=== PATIENT | female | born 1970 | race Caucasian/White ===

== ENCOUNTER → 2019-01-10 16:17 | Outpatient (CLI) | payer BC, SELFPAY ==
--- NOTE | 2019-01-10 16:18 | MM_ITS ---
MM Dig screening mamm BI w/CAD ORDERING PHYSICIAN : Alvino Martinez MD PATIENT AGE: 48 years GENDER: Female COMPARISON: May bilateral mammogram studies INDICATION: ...: Routine Screening Mammogram no hormones. No new complaints. Family history. Noncontributory TECHNIQUE: Standard CC and MLO images were obtained. R2 CAD reviewed. FINDINGS: Heterogeneous breast with areas of increased density bilaterally. Mammography is decreased sensitivity in breast of this character. RIGHT BREAST. . This is the central breast on cc view is again noted similar to the May 2016 study. This area also seems to dissipate somewhat on the MLO view. MLO with no significant new findings Again mammography is somewhat limited in breast of this density if any palpable areas arise ultrasound is useful compliment/augment mammography in this region is of increased breast density . I would tend to suggest &/encourage self breast examination in this patient LEFT BREAST:. Stable appearance. Follow-up in one year IMPRESSION: ...... Moderately dense heterogeneous breast pattern bilaterally-somewhat decreases sensitivity of mammography. No suspicious new findings. ... No new areas of significant concern when compared to multiple studies .. Stable areas of of asymmetric density . Bilateral follow-up in one year recommended BI-RADS Category: 2 RECOMMENDED FOLLOW-UP: 1YR 1 YEAR FOLLOW-UP (A letter has been sent to the patient regarding results of the study.)
== END ==
PROVIDERS: PCP Nurse Practitioner; Visit Provider Nurse Practitioner Obstetrics & Gynecology
DX: Z12.31 Encounter for screening mammogram for malignant neoplasm of breast (principal)
CPT/HCPCS: 77067

== ENCOUNTER 2019-12-06 21:26 | Observation (INO) | payer BC, SELFPAY ==
--- NOTE | 2019-12-06 21:19 | ECG_ITS ---
APPROVED REPORT Exam: Resting ECG HR:79 bpm ECG Measurements Heart Rate 79 AXES WY 128 P 63 QRSd 86 QRS 13 QT 386 T 29 QTc 442 <Conclusion> Sinus rhythm with occasional premature ventricular complexes RSR' or QR pattern in V1 suggests right ventricular conduction delay Borderline ECG Electronically signed by : Callum Diaz, 12/08/2019 18:04:20
[2019-12-06 21:26] VITALS: BP 132/82; PULSE 74; RESP 16; O2SAT 99
[2019-12-06 21:27] VITALS: BP 132/82; PULSE 73; RESP 16; TEMP 36.7; O2SAT 99; BMI 36.0
--- NOTE | 2019-12-06 21:32 | XR_ITS ---
PROCEDURE: XR CHEST 2V CLINICAL HISTORY: chest pain COMPARISON: No exams were available for comparison FINDINGS: The cardiomediastinal silhouette and pulmonary vascularity are within normal limits. The lungs are clear without infiltrates, suspicious nodules, or pleural effusions. There are few small right apical blebs with minimal biapical pleural thickening. No acute bony findings IMPRESSION: No acute finding Dictated by: Bk Rudolph MD 12/07/2019 08:21 Electronically signed by Bk Rudolph MD in [place] 12/07/2019 08:21
[2019-12-06 21:39] LABS: Basophils % 0.3 % (0.1-2.0); Eosinophils # 0.2 K/mm3 (0.0-0.4); Eosinophils % 2.2 % (0.1-12.0); Hematocrit 40.1 % (37.0-47.0); Hemoglobin 12.5 g/dL (12.2-16.2); Lymphocytes # 1.9 K/mm3 (0.7-4.5); Lymphocytes % 18.9 % (10-50); Mean Corpuscular HGB Conc 31.3 g/dL (31.8-35.4); Mean Corpuscular Hemoglobin 26.8 pg (27.0-31.2); Mean Corpuscular Volume 85.8 fl (81-99); Mean Platelet Volume 8.1 fl (7.4-10.4); Monocytes # 0.4 K/mm3 (0.1-1.0); Monocytes % 4.3 % (1.7-9.3); Neutrophils # 7.3 K/mm3 (1.8-7.8); Neutrophils % 74.4 % (37.0-80.0); Platelet Count 323 K/mm3 (142-424); Red Blood Count 4.68 M/mm3 (4.20-5.40); Red Cell Distribution Width 13.2 % (11.5-17.5); White Blood Count 9.9 K/mm3 (4.8-10.8)
[2019-12-06 21:41] LABS: Chloride 101 mmol/L (98-107); Sodium 138 mmol/L (136-145)
[2019-12-06 21:44] LABS: Blood Urea Nitrogen 12 mg/dl (7-17); Calcium 9.9 mg/dl (8.4-10.2); Carbon Dioxide 29 mmol/L (22.0-30.0); Creatinine Clearance Estimated 127 mL/min (50-200); Estimated Glomerular Filt Rate 76 ml/min (>60); GFR (African American) 92 ML/MIN (>60); Glucose 100 mg/dl (74-100)
[2019-12-06 22:00] VITALS: BP 127/79; PULSE 80; RESP 18; O2SAT 99
[2019-12-06 22:05] LABS: Troponin I < 0.01 ng/ml (0.00-0.034)
[2019-12-06 22:30] VITALS: BP 137/81; PULSE 74; RESP 18; O2SAT 99
[2019-12-06 23:00] VITALS: BP 140/61; PULSE 77; RESP 18; O2SAT 98
--- NOTE | 2019-12-06 23:34 | HMH.EDCP ---
ED Disposition Clinical Impression: Chest pain Qualifiers: Chest pain type: precordial pain Qualified Code(s): R07.2 - Precordial pain Disposition: Admitted as Observation Condition on Discharge: Good Referrals: Provider,Referral, [Primary Care Provider] - - Critical Care Critical Care Time: No Attestation: On 12/06/19, the high probability of a clinically significant, sudden or life threatening deterioration of the following system(s) required my full and direct attention, intervention and personal management. The time I documented below is in addition to time spent performing reported procedures but includes the following listed in this critical care notation. Medical Decision Making - Medical Records Medical records reviewed: Yes: I reviewed the patient's medical records. - Kurnal Inquiry Pt receiving controlled substance: No Vital Signs: 12/06/19 21:26 12/06/19 21:27 12/06/19 22:00 Temperature 98.0 F Temperature Source Oral Pulse Rate [Right Brachial] 74 73 80 Respiratory Rate 16 16 18 Blood Pressure [Right Arm] 132/82 132/82 127/79 Blood Pressure Mean [Right Arm] 98 98 95 Blood Pressure Source [Right Arm] Automatic Cuff Automatic Cuff Automatic Cuff Blood Pressure Position [Right Arm] Supine Sitting Supine 02 Sat by Pulse Oximetry 99 99 99 Oxygen Delivery Method Room Air Room Air Room Air 12/06/19 22:30 12/06/19 23:00 Temperature Temperature Source Pulse Rate [Right Brachial] 74 77 Respiratory Rate 18 18 Blood Pressure [Right Arm] 137/81 140/61 Blood Pressure Mean [Right Arm] 99 87 Blood Pressure Source [Right Arm] Automatic Cuff Automatic Cuff Blood Pressure Position [Right Arm] Supine Supine 02 Sat by Pulse Oximetry 99 98 Oxygen Delivery Method Room Air Room Air - Lab Data Lab results reviewed: Yes: I reviewed the patient's lab results. Lab Results 12/06/19 21:15: WBC 9.9, RBC 4.68, Hgb 12.5, Hct 40.1, MCV 85.8, MCH 26.8 L, MCHC 31.3 L, RDW 13.2, Plt Count 323, MPV 8.1, Neut % (Auto) 74.4, Lymph % (Auto) 18.9, [place] % (Auto) 4.3, Eos % (Auto) 2.2, Baso % (Auto) 0.3, Neut # (Auto) 7.3, Lymph # (Auto) 1.9, [place] # (Auto) 0.4, Eos # (Auto) 0.2, Baso # (Auto) 0.0 12/06/19 21:15: Sodium 138, Potassium 4.0, Chloride 101, Carbon Dioxide 29, Anion Gap 12.0, BUN 12, Creatinine 0.80, Estimated Creat Clear 127, Estimated GFR 76, Est GFR ( Amer) 92, Glucose 100, Calcium 9.9, Troponin I < 0.01 Result diagrams: 12/06/19 21:15 12/06/19 21:15 Orders (Tests/Meds): ED MEDICATIONS Generic Name Dose Route Start Last Admin Trade Name Freq PRN Reason Stop Dose Admin Sodium Chloride 1,000 mls @ 999 mls/hr 12/06/19 22:00 12/06/19 21:57 Sod Chlor 0.9% 1000ml Bag IV 12/06/19 23:00 999 mls/hr .Q1H1M RANJANA Administration Discontinued Medications Generic Name Dose Route Start Last Admin Trade Name Freq PRN Reason Stop Dose Admin Aspirin 324 mg 12/06/19 21:33 12/06/19 21:56 Aspirin 81mg Chewable Tablet PO 12/06/19 21:34 324 mg ONCE ONE Administration ORDERS Category Date Time Status Chest XR 2 view (NOT portable) [XR chest 2V] Stat Exams 12/06/19 21:32 Taken Troponin I Q3H Lab 12/07/19 00:45 Ordered Troponin I Q3H Lab 12/07/19 03:45 Ordered Urinalysis and Microscopic Stat Lab 12/06/19 21:33 Ordered - Radiology Data #1 Image(s): Chest Image Reviewed: Yes I reviewed the patient's radiology image Preliminary Findings: Normal/NAD - ECG Data Tracing #1 Normal Sinus Rhythm: Yes Ischemic changes: non-specific ST-T wave changes Chest Pain HPI - General Chief Complaint: Chest Pain Stated Complaint: chest pain Time Seen by Provider: 12/06/19 22:00 Mode of Arrival: Family Vehicle Source of Information: Patient, Medical Record Limitations: No Limitations Description of Symptoms (Recalled from ER Triage Doc. by RN): pt arrives via private vehicle; states she was at work when she began feeling dizzy in ddition to chest pain she had
--- NOTE | 2019-12-06 23:51 | PC.NURSE ---
pt up to bathroom with standby assist. no acute distress noted. mild dizziness.
[2019-12-07] VITALS (19 sets, daily range): BP systolic 95–130; BP diastolic 47–79; PULSE 60–84; RESP 14–18; TEMP 36.5–36.8; O2SAT 96–100; BMI 24.4; BMI 24.9
--- NOTE | 2019-12-07 | IR_ITS ---
APPROVED REPORT Patient Location: Inpatient Slider Assembler: TERRELL Metzger RT (R) PROCEDURES Left heart catheterization Left ventriculogram Selective coronary angiogram INDICATION Acute coronary syndrome, Abnormal stress test Informed consent was obtained prior to the procedure. COMPLICATIONS NONE Estimated Blood Loss: LESS THAN 10 ML TECHNIQUE One percent lidocaine used to anesthetize the right anterior aspect of the wrist. The right radial artery was accessed via the Seldinger technique. A 6 Indian sheath was placed in the right radial artery. 2.5 mg of verapamil, 800 mcg of nitroglycerin, 1mg Lidocaine and 5000 U Heparin were given through the arterial sheath. The trap catheter was also used to perform left heart catheterization, left ventriculogram and selective coronary angiogram. At the end of the procedure the sheath was removed good hemostasis was achieved using Traclet band, patient was transferred to the postop holding area in stable condition. ANGIOGRAPHIC RESULTS The left main artery Normal The left anterior descending artery Normal The circumflex artery Dominant normal The right coronary artery Normal The AYALA ventriculogram reveals Normal 65% The left ventricular end-diastolic pressure Normal 10 mmHg IMPRESSION Normal coronary arteries Normal ejection fraction Normal left ventricular end-diastolic pressure PLAN 1. Evaluation of noncardiac chest pain 2. Consideration for low-dose beta-blockers to suppress PVCs Electronically signed by : Catalion Valentin, 12/07/2019 11:54:14
--- NOTE | 2019-12-07 | CA_ITS ---
APPROVED REPORT Exam: Exercise Treadmill Technologist: Kenya Fernandez, Ht: 5 ft 6 in Wt: 140 lbs BSA: 1.72 m2 HR: 90 bpm BP: 101/61 mmHg Medical History Cardiac Risk Factors: FHX of CAD Stress Test Details Test: Meet HR Resting HR: 96 bpm Max Heart Rate (APMHR): 170 bpm Max HR Achieved: 159 bpm Target HR (85% APMHR): 144 bpm % of APMHR: 93 Recovery HR: 146 bpm BP Resting BP: 93.0/64.0 mmHg Max BP: 118.0/72.0 mmHg Recovery BP: 140.0/53.0 mmHg ECG Resting ECG: NSR,T WAVE INVERSION INF,ANTEROLAT. Clinical Reason for Termination: Fatigue Exercise duration: 08:01 min Highest Stage Achieved: Exercise capacity: 10.1 METs Stress ECG Conclusion PATIENT EXERCISED 8 MINUTES ON MEET PROTOCOL. 10.1 METS. MAX HEART RATE 159 BPM. MAX BP 140/63. TEST STOPPED DUE TO CHEST PAIN AND SOA. NO ARRHYTHMIAS/ECTOPY DURING STRESS. POSITIVE FOR FREQUENT PVC'S/RARE COUPLET IN RECOVERY. <1.5MM ST SEGMENT CHANGES. ABNORMAL STRESS. Test Summary REST . . . . . . . Standing REST . . . . . . . Sitting REST . . . . . . . Standing REST 27:31 0.0 0.0 96 . 93/ 64 . . Stage 1 01:00 10.0 1.7 112 . . . . Stage 1 02:00 10.0 1.7 120 . . . . Stage 1 03:00 10.0 1.7 117 . 100/ 70 . . Stage 2 01:00 12.0 2.5 129 . . . . Stage 2 02:00 12.0 2.5 136 . . . . Stage 2 03:00 12.0 2.5 142 . 110/ 70 . . Stage 3 01:00 14.0 3.4 149 . . . . Stage 3 02:00 14.0 3.4 158 . 118/ 72 . . Stage 3 02:01 14.0 3.4 158 . 118/ 72 . Stop exercise at 08:01 RECOVERY 01:00 0.0 0.0 126 . . . . RECOVERY 02:00 0.0 0.0 115 . . . . RECOVERY 03:00 0.0 0.0 117 . . . . RECOVERY 04:00 0.0 0.0 108 . . . . RECOVERY 05:00 0.0 0.0 100 . . . . RECOVERY 06:00 0.0 0.0 96 . . . . RECOVERY 06:52 0.0 0.0 93 . 116/ 59 . . Electronically signed by : Avelino Gaming, 12/07/2019 12:13:22
--- NOTE | 2019-12-07 00:05 | PC.NURSE ---
urine collected and sent to lab.
[2019-12-07 00:08] LABS: Microscopic, Urine URINE MICROSCOPIC (MICROSCOPIC)
[2019-12-07 00:14] LABS: Appearance,Urine CLEAR (Clear); Bilirubin,Urine Negative (Negative); Blood, Urine TRACE-L (Negative); Color,Urine YELLOW (Yellow); Glucose,Urine (UA) Negative (Negative); Ketones,Urine TRACE (Negative); Leukocyte Esterase,Urine Negative (Negative); Nitrate,Urine Negative (Negative); PH,Urine 6.5 (5.0-8.5); Protein,Urine Negative (Negative); Specific Gravity, Urine <= 1.005 (1.005-1.030); Urobilinogen,Urine 0.2 EU/dl (0.2)
--- NOTE | 2019-12-07 00:25 | PC.NURSE ---
PT ARRIVED TO THE FLOOR VIA W/C FROM ED DEPARTMENT @ 0025.
[2019-12-07 00:31] LABS: Bacteria,Urine Trace /lpf
[2019-12-07 01:57] LABS: Troponin I < 0.01 ng/ml (0.00-0.034)
--- NOTE | 2019-12-07 02:06 | PC.NURSE ---
A&OX4. PT WITH NO C/O CHEST PAIN OR SOA UPON ADMISSION. PT UP INDEPENDENTLY IN ROOM, TOLERATING RA. TOLERATING NPO DIET WELL. PT RESTING IN BED, ON TELE. NO COMPLAINTS THUS FAR, CALL VERGARA IN REACH, VSS WILL CONTINUE TO MONITOR.
--- NOTE | 2019-12-07 04:27 | PC.NURSE ---
PT HAS CONTINUED TO REST T/O SHIFT WITH NO C/O CHEST PAIN OR SOA. NPO DIET IN PLACE. PT TOLERATED SHOWER WELL. VSS WILL CONTINUE TO MONITOR.
[2019-12-07 04:55] LABS: Chloride 109 mmol/L (98-107); Sodium 135 mmol/L (136-145)
[2019-12-07 04:58] LABS: Blood Urea Nitrogen 11 mg/dl (7-17); Carbon Dioxide 21 mmol/L (22.0-30.0); Creatinine Clearance Estimated 115 mL/min (50-200); Estimated Glomerular Filt Rate 106 ml/min (>60); GFR (African American) 128 ML/MIN (>60)
[2019-12-07 04:59] LABS: Glucose 112 mg/dl (74-100)
[2019-12-07 05:02] LABS: Cholesterol 140 mg/dl (140-200); HDL Cholesterol 47 mg/dl (40-60); Magnesium 1.8 mg/dl (1.6-2.3); Triglycerides 54 mg/dl (30-150); VLDL Cholesterol 11 mg/dL (0-40)
[2019-12-07 05:13] LABS: Direct LDL Cholesterol 96.16 mg/dL (100-129)
[2019-12-07 05:14] LABS: Troponin I < 0.01 ng/ml (0.00-0.034)
[2019-12-07 05:18] LABS: Basophils % 0.2 % (0.1-2.0); Eosinophils % 0.2 % (0.1-12.0); Hematocrit 37.1 % (37.0-47.0); Hemoglobin 11.7 g/dL (12.2-16.2); Lymphocytes # 0.9 K/mm3 (0.7-4.5); Lymphocytes % 7.3 % (10-50); Mean Corpuscular HGB Conc 31.5 g/dL (31.8-35.4); Mean Corpuscular Volume 85.5 fl (81-99); Mean Platelet Volume 8.2 fl (7.4-10.4); Monocytes # 0.4 K/mm3 (0.1-1.0); Monocytes % 3.4 % (1.7-9.3); Neutrophils # 10.7 K/mm3 (1.8-7.8); Neutrophils % 88.9 % (37.0-80.0); Platelet Count 293 K/mm3 (142-424); Red Blood Count 4.34 M/mm3 (4.20-5.40); Red Cell Distribution Width 13.5 % (11.5-17.5)
[2019-12-07 05:25] LABS: MANUAL DIFFERENTIAL MANUAL DIFFERENTIAL (MANUAL DIFF)
[2019-12-07 05:28] LABS: Calcium 8.6 mg/dl (8.4-10.2)
[2019-12-07 06:08] LABS: Lymphocytes % 10 % (10-50); Monocytes % 1 % (2-9); Neutrophils % 88 % (42-76); Platelet Estimate Normal; Stomatocytes 1+; Total Cells Counted 100
--- NOTE | 2019-12-07 06:37 | PC.NURSE ---
TRENTON HERBERT NOTIFIED OF CONSULT
--- NOTE | 2019-12-07 07:23 | HMH.PHAVTE ---
[facility] Pharmacy VTE Monitoring - Patient Demographics Admission date: 12/07/19 Report Date: 12/07/19 Time: 07:24 Allergies/Adverse Reactions: Patient Allergies No Known Allergies Allergy (Verified 12/07/19 00:36) Height: 1.63 m Weight: 66.224 kg Patient Problems: Current Active Problems Chest pain (Acute) - VTE Risk Labs: VTE Related Lab Results Hgb 11.7 g/dL (12.2-16.2) L 12/07/19 04:00 Hct 37.1 % (37.0-47.0) 12/07/19 04:00 Plt Count 293 K/mm3 (142-424) 12/07/19 04:00 BUN 11 mg/dl (7-17) 12/07/19 04:00 Creatinine 0.60 mg/dl (0.52-1.04) D 12/07/19 04:00 Estimated Creat Clear 115 mL/min (50-200) 12/07/19 04:00 Was VTE Risk Assessment Performed: Yes VTE Score: 3 VTE Risk Level: Low Risk Clinical Trial Participant: No - Prophylaxis VTE Prophylaxis Ordered?: Yes Types of VTE Prophylaxis: TEDS Knee High
--- NOTE | 2019-12-07 07:38 | CA_ITS ---
APPROVED REPORT EXAM: Comprehensive 2D, Doppler, and color-flow Echocardiogram Primary Substance Abuse Counselor: Earnestine Duncan RVT Ht: 5 ft 4 in Wt: 146lbs BSA: 1.71 BP: 101/60 mmHg Indications: CP Conclusion 1. Patient exercised on Meet protocol and achieved 10.1 mets of workload on treadmill, the blood pressure response to exercise was adequate, patient complained of chest discomfort with peak exercise relieved with rest. The EKG portion of the stress echo was nondiagnostic due to baseline abnormal EKG. 2. With exercise there is increase in contractility of the segments of the myocardium visualized, inferolateral wall was not well visualized. Preserved left ventricular systolic function. 3. Abnormal exercise stress echo due to development of chest discomfort with exercise relieved with rest, baseline EKG was abnormal, inferolateral segments of the myocardium was not well visualized. Electronically signed by : Avelino Gaming, 12/07/2019 12:16:10
--- NOTE | 2019-12-07 07:43 | PC.NURSE ---
relayed to md about patient new onset of hives to wrist and back. md ordered benadryl 25mg iv one time and to remove nitro patch
--- NOTE | 2019-12-07 07:43 | HMH.HP ---
*Admission Date: 12/07/19 *Chief complaint: Chest pain *History of present illness: 49-year-old female no presented to the emergency department after 48 hours of intermittent episodes of chest pain that she would describe as a sharp substernal pain that would last for 1 to 2 minutes and then transition to an achy pain which would eventually resolve over 5 to 10 minutes. Pain first occurred on Wednesday morning when she awoke from sleep. episodes of chest pain lasted until around noon. The next morning patient once again awoke and had chest pain. Symptoms persisted throughout the day. Yesterday evening she had associated nausea and flushing with her episode of chest pain. She also became dizzy and that is what prompted her visit to the emergency department. Patient was admitted. Overnight she is ruled out for LA. EKG did not reveal any ischemia. Regarding risk factors patient has a family history of early heart disease. Her father in his mid 50s from heart disease. [facility] History I have reviewed the patient's past medical history: Yes Medical History: Reports:: Migraine Denies:: Cancer, Diabetes Mellitus Type 1, Diabetes Mellitus Type 2, MRSA *Have you ever received a pneumonia vaccine?: No *Have you received a flu vaccine this season?: No Laterality Cases: Bilateral: Tonsillectomy, Other Other Surgeries: Yes: , Tubal Ligation, Other (Mitral valve prolapse.) Amputation: No Fractures: No - *Social History Educational Level: Completed High School Smoking Status: Never smoker Alcohol Intake: never Substance Use Type: denies use *Occupational Status:: employed Household Members: spouse *Travel in the last 8 weeks: None Family Hx:: Heart Attack, Hypertension, Thyroid Disorder, Alcoholism, Mental illness 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 , 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 Review of Systems - Review of Systems Review of systems:: pertinent systems reviewed and negative unless documented below - Constitutional Denies anorexia, Denies body ache(s), Denies chills - *Cardiovascular Reports chest pain - *Respiratory Denies chest congestion, Denies cough, Denies shortness of breath, Denies shortness of breath with activity - *Gastrointestinal Denies abdominal pain, Denies belching, Denies bloating, Denies heartburn - *Genitourinary Denies abnormal periods - *Musculoskeletal Denies abnormal walking - Integumentary/Breasts Denies acne, Denies hair loss - *Neurologic Denies confusion, Denies seizure-like activity Meds Home Medications Medication Instructions Recorded Confirmed Type No Known Home Medications 07/04/19 12/07/19 History Allergies Allergy/AdvReac Type Severity Reaction Status Date / Time No Known Allergies Allergy Verified 12/07/19 00:36 Exam Vital signs and Labs for Last 24 Hours: Temp Pulse Resp BP Pulse Ox 98.2 F 65 14 100/60 L 97 12/07/19 04:00 12/07/19 04:00 12/07/19 04:00 12/07/19 04:00 12/07/19 04:00 Laboratory Results - last 24 hr 12/06/19 21:15: WBC 9.9, RBC 4.68, Hgb 12.5, Hct 40.1, MCV 85.8, MCH 26.8 L, MCHC 31.3 L, RDW 13.2, Plt Count 323, MPV 8.1, Neut % (Auto) 74.4, Lymph % (Auto) 18.9, [place] % (Auto) 4.3, Eos % (Auto) 2.2, Baso % (Auto) 0.3, Neut # (Auto) 7.3, Lymph # (Auto) 1.9, [place] # (Auto) 0.4, Eos # (Auto) 0.2, Baso # (Auto) 0.0 12/06/19 21:15: Sodium 138, Potassium 4.0, Chloride 101, Carbon Dioxide 29, Anion Gap 12.0, BUN 12, Creatinine 0.80, Estimated Creat Clear 127, Estimated GFR 76, Est GFR ( Amer) 92, Glucose 100, Calcium 9.9, Troponin I < 0.01 12/07/19 00:04: Urine Color Yellow, Urine Appearance Clear, Urine pH 6.5, Ur Specific [place] <= 1.005, Urine Protein Negative, Urine Glucose (UA) Negative, Urine Ketones Trace, Urine Blood Trace-l, Urine Nitrate Negative, Urine Bilirubin Negative, Urine Urobilinogen 0.2, Ur Leukocyte Esterase Negative, Urine WBC 3-5, Ur Squamous Epith Cells 3-5, Urine Bacteria Trace 12/07/19 00:43: Troponin I < 0.01 12/07/19
--- NOTE | 2019-12-07 07:47 | HMH.CNCARD ---
History of Present Illness Consult date: 12/07/19 Requesting physician: Darron Elmore Consult reason: chest pain Chief complaint: chest pain Additional Medical History:: 1. Family history of early coronary artery disease in her father, in his 50s, who was a smoker 2. Vitiligo 3. 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 Pain first occurred on Wednesday morning when she awoke from sleep. episodes of chest pain lasted until around noon. The next morning patient once again awoke and had chest pain. Symptoms persisted throughout the day. Yesterday evening she had associated nausea and flushing with her episode of chest pain. She also became dizzy and that is what prompted her visit to the emergency department. Patient was admitted. Overnight she is ruled out for DC. EKG did not reveal any ischemia. Regarding risk factors patient has a family history of early heart disease. Her father in his mid 50s from heart disease. The above per Dr. Elmore Patient confirms above description of chest pain. She denies tobacco use, treatment for hypertension hyperlipidemia or diabetes. EKG is sinus rhythm with with RSR pattern. [facility] History Medical History: Reports:: Migraine Denies:: Cancer, Diabetes Mellitus Type 1, Diabetes Mellitus Type 2, MRSA *Have you ever received a pneumonia vaccine?: No *Have you received a flu vaccine this season?: No Laterality Cases: Bilateral: Tonsillectomy, Other Other Surgeries: Yes: , Tubal Ligation, Other (Mitral valve prolapse.) Amputation: No Fractures: No - *Social History Educational Level: Completed High School Smoking Status: Never smoker Alcohol Intake: never Substance Use Type: denies use *Occupational Status:: employed Household Members: spouse *Travel in the last 8 weeks: None Family Hx:: Heart Attack, Hypertension, Thyroid Disorder, Alcoholism, Mental illness 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 , 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 Meds Home Medications Medication Instructions Recorded Confirmed Type No Known Home Medications 07/04/19 12/07/19 History Allergies Allergy/AdvReac Type Severity Reaction Status Date / Time No Known Allergies Allergy Verified 12/07/19 00:36 Review of Systems - Review of Systems Review of systems:: pertinent systems reviewed and negative unless documented below - *Cardiovascular Reports chest pain, Denies shortness of breath with activity - *Respiratory Denies shortness of breath with activity - *Gastrointestinal Reports nausea, Denies loose stools, Denies vomiting - *Genitourinary Denies blood in urine - *Musculoskeletal Denies joint pain, Denies back pain - *Neurologic Denies confusion, Denies seizure-like activity Exam Vital signs and Labs for Last 24 Hours: Temp Pulse Resp BP Pulse Ox 98.2 F 65 14 100/60 L 97 12/07/19 04:00 12/07/19 04:00 12/07/19 04:00 12/07/19 04:00 12/07/19 04:00 Laboratory Results - last 24 hr 12/06/19 21:15: WBC 9.9, RBC 4.68, Hgb 12.5, Hct 40.1, MCV 85.8, MCH 26.8 L, MCHC 31.3 L, RDW 13.2, Plt Count 323, MPV 8.1, Neut % (Auto) 74.4, Lymph % (Auto) 18.9, [place] % (Auto) 4.3, Eos % (Auto) 2.2, Baso % (Auto) 0.3, Neut # (Auto) 7.3, Lymph # (Auto) 1.9, [place] # (Auto) 0.4, Eos # (Auto) 0.2, Baso # (Auto) 0.0 12/06/19 21:15: Sodium 138, Potassium 4.0, Chloride 101, Carbon Dioxide 29, Anion Gap 12.0, BUN 12, Creatinine 0.80, Estimated Creat Clear 127, Estimated GFR 76, Est GFR ( Amer) 92, Glucose 100, Calcium 9.9, Troponin I < 0.01 12/07/19 00:04: Urine Color Yellow, Urine Appearance Clear, Urine pH 6.5, Ur Specific [place] <= 1.005, Urine Protein
--- NOTE | 2019-12-07 08:00 | CA_ITS ---
APPROVED REPORT EXAM: Comprehensive 2D, Doppler, and color-flow Echocardiogram Aqua Ammonia Operator: Yolande Jackson CRT Ht: 5 ft 6 in Wt: 140lbs BSA: 1.72 BP: 127/79 mmHg Indications: Chest Pain, Mitral Valve Prolapse, Dizziness and Vertigo 2D Dimensions LVOT 1.99 cm (M/F) 1.5-2.5 M-Mode Dimensions RVDd 2.43 cm (0.9-2.6) LVDd 4.81 cm (3.5-5.7) LVDs 2.70 cm (3.5-5.7) IVSd 0.96 cm (0.6-1.1) PWd 0.72 cm (0.6-1.1) EF (Teich) 75.00% FS 43.90% EDV (Teich) 108.00 mL ESV (Teich) 27.00 mL LV Diastology E/A Ratio 0.55 Mitral Valve MV A Velocity 81.00 (40-130 cm/s) Left Ventricle Left atrium is normal size, left ventricle is normal size, there is no concentric left ventricular hypertrophy, visually estimated ejection fraction 55% with no regional wall motion abnormality. Grade 1 diastolic dysfunction seen without tissue Doppler evidence of raise left atrial pressure. Right Ventricle Right atrium and right ventricular normal size and contractility. Aortic Valve Aortic valve is grossly normal, there is no aortic stenosis aortic insufficiency. Mitral Valve Mitral valve is mildly myxomatous, there is mild prolapse of both anterior posterior mitral leaflet, there is no mitral stenosis, there is trace mitral regurgitation. Tricuspid Valve Tricuspid valve is grossly normal, there is trace tricuspid regurgitation. Great Vessels Aortic root is normal size. Pericardium No significant pericardial effusion noted. Conclusion 1. Normal left ventricular size, preserved left ventricular systolic function, visually estimated ejection fraction 55% with no regional wall motion abnormality, grade 1 diastolic dysfunction seen without tissue Doppler evidence of raise left atrial pressure. 2. Myxomatous mitral valve with mild prolapse of both anterior posterior mitral leaflet, there is no mitral stenosis, there is trace mitral regurgitation. 3. Trace tricuspid regurgitation. 4. No significant pericardial effusion noted. Electronically signed by : Avelino Gaming, 12/07/2019 12:29:23
--- NOTE | 2019-12-07 09:23 | HMH.PHAINT ---
MEDICATION RECONCILIATION COMPLETE. OBTAINED A LIST FROM HER PROVIDER AND CROSS REFERENCED WITH PHARMACY FILL RECORD. SPOKE WITH PATIENT AND SHE CONFIRMED THAT SHE DOES NOT TAKE ANY MEDICATIONS AT HOME.
--- NOTE | 2019-12-07 09:51 | PC.NURSE ---
Charted in error on Teds intervention on pt -12/07/19
--- NOTE | 2019-12-07 11:07 | PC.NURSE ---
taken to cathlab
--- NOTE | 2019-12-07 15:32 | HMH.DCSUM ---
General - General Admission date:: 12/07/19 Discharge date: 12/07/19 HPI HPI: 49-year-old female no presented to the emergency department after 48 hours of intermittent episodes of chest pain that she would describe as a sharp substernal pain that would last for 1 to 2 minutes and then transition to an achy pain which would eventually resolve over 5 to 10 minutes. Pain first occurred on Wednesday morning when she awoke from sleep. episodes of chest pain lasted until around noon. The next morning patient once again awoke and had chest pain. Symptoms persisted throughout the day. Yesterday evening she had associated nausea and flushing with her episode of chest pain. She also became dizzy and that is what prompted her visit to the emergency department. Patient was admitted. Overnight she is ruled out for LA. EKG did not reveal any ischemia. Regarding risk factors patient has a family history of early heart disease. Her father in his mid 50s from heart disease. Hospital Course Hospital Course: Patient was admitted and ruled out for myocardial infarction. Cardiology was consulted. Patient had echocardiogram which showed mitral valve prolapse with normal ejection fraction. Patient underwent stress echocardiogram which was abnormal as patient developed chest pain during peak exercise. Due to the abnormal stress test patient underwent cardiac catheterization which fortunately showed normal coronary arteries. Patient had PVCs identified on her's stress echo. She will be started on low-dose beta-oren therapy for the PVCs. She will follow-up in my office in 1 week. She has been asked to monitor any chest pain symptoms and should chest pain persist we will investigate other causes of chest pain. Objective Vital signs: Temp Pulse Resp BP Pulse Ox 97.7 F 81 16 125/60 97 12/07/19 08:00 12/07/19 13:45 12/07/19 13:45 12/07/19 13:45 12/07/19 13:45 Results Labs on day of discharge: Labs from last 24 hours 12/07/19 12/07/19 12/07/19 04:00 04:00 04:00 WBC 12.0 H RBC 4.34 Hgb 11.7 L Hct 37.1 MCV 85.5 MCH 27.0 MCHC 31.5 L RDW 13.5 Plt Count 293 MPV 8.2 Neut % (Auto) 88.9 H Lymph % (Auto) 7.3 L [place] % (Auto) 3.4 Eos % (Auto) 0.2 Baso % (Auto) 0.2 Neut # (Auto) 10.7 H Lymph # (Auto) 0.9 [place] # (Auto) 0.4 Eos # (Auto) 0.0 Baso # (Auto) 0.0 Total Counted 100 Neutrophils % (Manual) 88 H Lymphocytes % (Manual) 10 Monocytes % (Manual) 1 L Basophils % (Manual) 1.0 Platelet Estimate Normal Stomatocytes 1+ Sodium 135 L Potassium 4.0 Chloride 109 H Carbon Dioxide 21 L D Anion Gap 9.0 BUN 11 Creatinine 0.60 D Estimated Creat Clear 115 Estimated GFR 106 Est GFR ( Amer) 128 D Glucose 112 H Calcium 8.6 D Magnesium 1.8 Troponin I Triglycerides 54 Cholesterol 140 LDL Cholesterol Direct 96.16 L VLDL Cholesterol 11 HDL Cholesterol 47 Cholesterol/HDL Ratio 3.0 Urine Color Urine Appearance Urine pH Ur Specific [place] Urine Protein Urine Glucose (UA) Urine Ketones Urine Blood Urine Nitrate Urine Bilirubin Urine Urobilinogen Ur Leukocyte Esterase Urine WBC Ur Squamous Epith Cells Urine Bacteria 12/07/19 12/07/19 12/07/19 04:00 00:43 00:04 WBC RBC Hgb Hct MCV MCH MCHC RDW Plt Count MPV Neut % (Auto) Lymph % (Auto) [place] % (Auto) Eos % (Auto) Baso % (Auto) Neut # (Auto) Lymph # (Auto) [place] # (Auto) Eos # (Auto) Baso # (Auto) Total Counted Neutrophils % (Manual) Lymphocytes % (Manual) Monocytes % (Manual) Basophils % (Manual) Platelet Estimate Stomatocytes Sodium Potassium Chloride Carbon Dioxide Anion Gap BUN Creatinine Estimated Creat Clear Estimated GFR
--- NOTE | 2019-12-07 15:50 | HMH.PHAINT ---
DISCHARGE COUNSELING COMPLETE. SPOKE WITH THE PATIENT REGARDING THE ADDITION OF BISOPROLOL. DISCUSSED EFFECT ON HR/BP, POTENTIAL FOR DIZZINESS, HOW TO TAKE. PATIENT ASKED BEST TIME OF DAY TO TAKE AND I ADVISED AT NIGHT UNTIL SHE KNOWS HOW IT WILL AFFECT HER.
== END 2019-12-07 17:28 | disposition home or self-care (01) ==
LOC: ER 23:51 → 2ND 12-07 00:16
PROVIDERS: Internal Medicine; Admitting Provider Emergency Medicine; Emergency Provider Emergency Medicine; PCP Family Medicine; Visit Provider Family Medicine
DX: R07.2 Precordial pain (principal); I05.9 Rheumatic mitral valve disease, unspecified; I49.3 Ventricular premature depolarization; I21.9 Acute myocardial infarction, unspecified; L50.9 Urticaria, unspecified; L80 Vitiligo; R61 Generalized hyperhidrosis; R11.0 Nausea; R94.39 Abnormal result of other cardiovascular function study; G43.909 Migraine, unspecified, not intractable, without status migrainosus; Z86.79 Personal history of other diseases of the circulatory system; Z90.89 Acquired absence of other organs; Z82.49 Family history of ischemic heart disease and other diseases of the circulatory system; Z83.49 Family history of other endocrine, nutritional and metabolic diseases; Z81.1 Family history of alcohol abuse and dependence; Z81.8 Family history of other mental and behavioral disorders
CPT/HCPCS: 36415; 71046; 80048; 80061; 81001; 83735; 84484; 85007; 85025; 93005; 93017; 93306; 93350; 93458; 96365; 99152; 99285; C1725; C1769; G0378; J1644; Q9967

== ENCOUNTER → 2019-12-22 12:49 | Outpatient (CLI) | payer BC, SELFPAY ==
--- NOTE | 2019-12-22 12:58 | US_ITS ---
PROCEDURE: US THYROID CLINICAL INDICATION: THYROID NODULE Tenderness COMPARISON: No exams were available for comparison FINDINGS: Right lobe: 3.9 x 1.4 x 1.3 cm with homogeneous echogenicity without discrete nodule. Left lobe: 4.1 x 1.4 x 1.4 cm with homogeneous echogenicity. There is a 2 mm hypoechoic nodule in the mid aspect of the left lobe nonspecific Isthmus: Unremarkable Additional findings: IMPRESSION: 2 mm hypoechoic nodule in the mid aspect of the left lobe nonspecific with low level of suspicion. Otherwise negative thyroid ultrasound Dictated by: Bk Rudolph MD 12/22/2019 16:58 Electronically signed by Bk Rudolph MD in [place] 12/22/2019 16:58
== END ==
PROVIDERS: PCP Family Medicine; Visit Provider Nurse Practitioner Family
DX: E04.1 Nontoxic single thyroid nodule (principal)
CPT/HCPCS: 76536

== ENCOUNTER → 2020-02-12 09:58 | Outpatient (CLI) | payer BC, SELFPAY ==
--- NOTE | 2020-02-12 10:02 | MM_ITS ---
PROCEDURE: MM DIG SCREENING MAMM BI W/CAD Digital Breast Tomosynthesis Included CLINICAL INDICATION: screening xmg There is no personal or family history of breast cancer. COMPARISON: DMDXUR DIG MAMM-DX UNI-RT from 06/05/2016 [facility]B DIG MAMM-SCREEN JÚNIOR W/CAD from 06/25/2017 [facility] MM Dig screening mamm BI w/CAD from 01/10/2019 TECHNIQUE: Standard CC and MLO images and 3D Tomosynthesis was obtained. R2 CAD reviewed. FINDINGS: There is a diffusely dense and heterogenic parenchymal pattern and the findings of bilateral and symmetrical. Agus images are most helpful in this type of dense breast parenchyma. There is no new or suspicious lesion in either breast and no suspicious microcalcifications. IMPRESSION: Diffusely dense parenchymal pattern with no suspicious lesions seen BI-RAD Category: 1 Negative FOLLOW-UP: 1YR 1 Year Follow-up (A letter has been sent to the patient regarding results of the study.) Dictated by: Dr. Dylan Espinosa MD 02/13/2020 09:[address] Dylan Espinosa MD in [place] 02/13/2020 09:40
== END ==
PROVIDERS: PCP Family Medicine; Visit Provider Nurse Practitioner Obstetrics & Gynecology
DX: Z12.31 Encounter for screening mammogram for malignant neoplasm of breast (principal)
CPT/HCPCS: 77063; 77067

== ENCOUNTER → 2020-04-05 09:24 | Outpatient (CLI) | payer BC, SELFPAY ==
[2020-04-05 10:49] LABS: Coronavirus 19 IgG Antibody Negative (Negative); Coronavirus 19 IgM Antibody Negative (Negative)
== END ==
PROVIDERS: Visit Provider Internal Medicine Gastroenterology
DX: Z01.818 Encounter for other preprocedural examination (principal); Z12.11 Encounter for screening for malignant neoplasm of colon
CPT/HCPCS: 36415; 86328

== ENCOUNTER 2020-04-08 08:33 | Day surgery (SDC) | payer BC, SELFPAY ==
[2020-04-04 09:09] VITALS: BMI 21.7
[2020-04-08] VITALS (7 sets, daily range): BP systolic 84–119; BP diastolic 52–70; PULSE 51–60; RESP 18; TEMP 36.1–36.3; O2SAT 97–100
[2020-04-08 09:00] LABS: Urine Pregnancy, HCG Qual. Negative (Negative)
--- NOTE | 2020-04-08 09:07 | P.PN_ITS ---
[facility] Anesthesia Checklist - Patient Identification Patient Identification: Arm Band, Verbal (Name & ) - Structural Data Admitted From: Home Planned Operative Procedure/s: Colonoscopy Consent for Planned Operative Procedure(s) Verified: Yes Verified Documents: Surgical Consent, History and Physical - NPO Status Verified Time NPO: 00:00 - Chart Verification Results Verified: HCG - Additional verifications Patient : No Anesthesia Reactions: No - Airway Assessment C-Spine Mobility Assessed: Yes TMJ Mobility Assessed: Yes Dentition: Good Dentition - Neurological Assessment Level of Consciousness: Awake, Alert, Appropriate, Follows Commands Hx Seizures: No Numbness or tingling in extremities: No - Anesthesia Plan Anesthesia Risk discussed: Yes Anesthesia Plan: Verified ASA Class: II Anesthesia Type: MAC [facility] History I have reviewed the patient's past medical history: Yes Medical History: Reports:: Gastroesophageal Reflux Disease(GERD), Migraine, Valvular Heart Disease (MVP) Denies:: Cancer, Diabetes Mellitus Type 1, Diabetes Mellitus Type 2, Internal Pacemaker, MRSA, Seizures *Have you ever received a pneumonia vaccine?: No *Have you received a flu vaccine this season?: No Anesthesia experience/problems:: None Laterality Cases: Bilateral: Myringotomy (Ear Tubes), Tonsillectomy, Other Other Surgeries: Yes: , Tubal Ligation, Other (Mitral valve prolapse.). 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
--- NOTE | 2020-04-08 09:27 | P.PCN_ITS ---
[facility] Procedure Note Procedure Note:: Colonoscopy Procedure Report: Colonoscopy with cold snare polypectomy Endoscopist: Christiano Frazier II, MD Referring physician: VAHID Velasquez/Alvino Martinez MD Date of Procedure: April 08, 2020 Equipment: Olympus 180 variable stiffness pediatric colonoscope Sedation: MAC sedation Indication: Mrs. Fernandes is a 49-year-old female who is here for initial screening colonoscopy. She reports no abdominal pain, weight loss, change in her bowel habits or rectal bleeding. She reports no family history of colon cancer. She does get some mild chronic constipation and bloating. Procedure: Prior to the procedure, a history and physical exam was performed, and patient's medications and allergies were reviewed. The risks, benefits and alternatives of the sedation and procedure were discussed with the patient. All questions were answered and informed consent was obtained. The patient was brought to the procedure room. Patient identification and proposed procedure were verified by the physician and the nurse. The patient was placed in a left lateral decubitus position and the scope was passed under direct vision. Throughout the procedure, the patient's blood pressure, pulse, and oxygen saturations were monitored continuously. The colonoscopy was accomplished without difficulty. The patient tolerated the procedure well. Findings: On digital rectal examination there was normal rectal tone. There were no external hemorrhoids. The colonoscope was introduced through the anal canal to the rectum and advanced to the cecum. The ileocecal valve and appendiceal orifice were identified. The scope was advanced a short distance into the ileum which appeared grossly normal. The scope was then withdrawn into the colon. The cecum and ascending colon were normal. There was a 3 mm polyp in the transverse colon and a 5 to 6 mm polyp in the descending colon both of which were removed v ia cold snare polypectomy. The remainder of the descending, sigmoid and rectum were normal. There were no other mucosal abnormalities. Upon retroflexion within the rectum there were grade 1 internal hemorrhoids.The preparation was excellent throughout with Archer Preparation Score of 9. The cecal time was 12 minutes. Impression: 1. Diminutive colonic polyps x2 2. Grade 1 internal hemorrhoids Plan: I will follow up the polyp pathology and recommend repeat colonoscopy again in 7-10 years based upon the polyp histology. I would encourage a fiber bowel regimen on a long-term daily maintenance basis.
== END 2020-04-08 10:35 | disposition home or self-care (01) ==
LOC: OUTP 08:35
PROVIDERS: PCP Nurse Practitioner; Visit Provider Internal Medicine Gastroenterology
PROC: 0DJD8ZZ Inspection of Lower Intestinal Tract, Via Natural or Artificial Opening Endoscopic (ICD-10-PCS; CPT 45378; principal; 2020-04-08 09:30)
DX: Z12.11 Encounter for screening for malignant neoplasm of colon (principal); K63.5 Polyp of colon; K64.0 First degree hemorrhoids; K21.9 Gastro-esophageal reflux disease without esophagitis; G43.909 Migraine, unspecified, not intractable, without status migrainosus; I34.1 Nonrheumatic mitral (valve) prolapse; Z90.89 Acquired absence of other organs; Z96.22 Myringotomy tube(s) status; Z79.899 Other long term (current) drug therapy
CPT/HCPCS: 45385; 81025

== ENCOUNTER → 2020-12-12 11:01 | Outpatient (CLI) | payer BC, SELFPAY ==
--- NOTE | 2020-12-12 | XR_ITS ---
PROCEDURE: XR SHOULDER RT MIN 2V CLINICAL INDICATION: PAIN IN RT SHOUDER REGION COMPARISON: No exams were available for comparison FINDINGS: No fracture or dislocation. No lytic or blastic change. There is normal mineralization. The joint spaces are well-preserved. No significant degenerative/arthritic changes. No erosive changes evident. Other findings:None. IMPRESSION: No acute findings. Dictated by: Bk Rudolph MD 12/12/2020 14:39 Bk Rudolph MD in [place] 12/12/2020 14:39
--- NOTE | 2020-12-12 | XR_ITS ---
PROCEDURE: XR SHOULDER LT MIN 2V CLINICAL INDICATION: PAIN IN LT SHOUDER REGION COMPARISON: No exams were available for comparison FINDINGS: No fracture or dislocation. No lytic or blastic change. There is normal mineralization. Mild osteoarthritic changes the glenohumeral joint. There is mild subacromial stenosis. Other findings:There is a small spur along the medial aspect and inferior aspect of the acromion projecting medially. IMPRESSION: Mild osteoarthritis of glenohumeral joint with mild subacromial stenosis Dictated by: Bk Rudolph MD 12/12/2020 14:24 Bk Rudolph MD in [place] 12/12/2020 14:24
== END ==
PROVIDERS: PCP Nurse Practitioner Family; Visit Provider Nurse Practitioner Family
DX: M25.512 Pain in left shoulder (principal); M25.511 Pain in right shoulder
CPT/HCPCS: 73030

== ENCOUNTER → 2020-12-25 10:50 | Outpatient (CLI) | payer BC, SELFPAY ==
--- NOTE | 2020-12-25 10:56 | US_ITS ---
PROCEDURE: US THYROID CLINICAL INDICATION: THYHROID NODULE COMPARISON: US US THYROID from 12/22/2019 FINDINGS: Right lobe: 4 x 1.4 x 1.4 cm with homogeneous echogenicity. No discrete nodule. Left lobe: 4.1 x 1.5 x 1.3 cm with homogeneous echogenicity. A 2 mm hypoechoic nodules present in the mid polar region not significantly changed. No new nodules evident. Isthmus: Unremarkable Additional findings: IMPRESSION: Stable appearance of the thyroid gland. No change 2 mm hypoechoic nodule mid polar region on the left Dictated by: Bk Rudolph MD 12/25/2020 14:19 kB Rudolph MD in [place] 12/25/2020 14:19
== END ==
PROVIDERS: PCP Nurse Practitioner Family; Visit Provider Nurse Practitioner Family
DX: E04.1 Nontoxic single thyroid nodule (principal)
CPT/HCPCS: 76536

== ENCOUNTER → 2021-02-18 10:19 | Outpatient (CLI) | payer BC, SELFPAY ==
--- NOTE | 2021-02-18 10:20 | MM_ITS ---
PROCEDURE INFORMATION: Exam: MG Screening 3D Mammography Exam date and time: 02/18/2021 10:20 AM Age: 50 years old Clinical indication: Encounter for screening mammogram for malignant neoplasm of breast TECHNIQUE: Imaging protocol: Screening tomosynthesis and 2D mammography including computer-aided detection (CAD) when performed. COMPARISON: 1. MG MM DIG SCREENING MAMM BI W/CAD 02/12/2020 10:02 AM 2. MG [facility] MM Dig screening mamm BI w/CAD 01/10/2019 4:34 PM FINDINGS: MAMMOGRAPHY: Breast composition: The breast tissue is heterogeneously dense, which may obscure small masses. Mass: Questionable 0.8 cm mass in the posterior third of the right central breast slightly medial to the nipple line Architectural distortion: None. Calcifications: No suspicious calcifications. Asymmetric density: None. Skin thickening: None. Axillary adenopathy: None. IMPRESSION: Patient to be recalled for spot compression views of the right breast in the CC and MLO projections and right breast ultrasound for further evaluation of a right breast mass. ASSESSMENT: BI-RADS Category 0: Incomplete- Need Additional Imaging Evaluation and/or Prior Mammograms for Comparison
== END ==
PROVIDERS: PCP Nurse Practitioner Family; Visit Provider Nurse Practitioner Obstetrics & Gynecology
DX: Z12.31 Encounter for screening mammogram for malignant neoplasm of breast (principal)
CPT/HCPCS: 77063; 77067

== ENCOUNTER → 2021-03-13 13:30 | Outpatient (CLI) | payer BC, SELFPAY ==
--- NOTE | 2021-03-13 13:31 | MM_ITS ---
PROCEDURE: MM DIG MAMM DX UNILAT RT CAD Digital Breast Tomosynthesis Included CLINICAL INDICATION: abnormal findings on recent xmg COMPARISON: MG [facility] MM Dig screening mamm BI w/CAD from 01/10/2019 MG MM DIG SCREENING MAMM BI W/CAD from 02/12/2020 MG MM DIG SCREENING MAMM BI W/CAD from 02/18/2021 US US BREAST RT COMPLETE from 03/13/2021 TECHNIQUE: Standard CC and MLO images and 3D Tomosynthesis was obtained. R2 CAD reviewed. FINDINGS: The breast is heterogeneously dense, may obscure small masses. Spot compression images demonstrate no evidence of focal discrete masses. There is moderately dilated linear appearing hypoechogenicity is noted in the right breast at 12 o'clock position, may represent dilated ducts. Dense fibroglandular tissue is noted in the right breast. IMPRESSION: Probably benign finding. BI-RAD Category: 3 Probably Benign Finding Short Term Follow-Up FOLLOW-UP: Follow-up ultrasound and mammogram in 6 months is recommended. (A letter has been sent to the patient regarding results of the study.) Dictated by: Peggy Grant 03/13/2021 16:56 Peggy Grant in [place] 03/13/2021 16:56
--- NOTE | 2021-03-13 13:31 | US_ITS ---
PROCEDURE: US BREAST RT COMPLETE CLINICAL INDICATION: abnormal findings on recent xmg COMPARISON: US BL US BREAST-LT COMPLETE W/AXILLA from 12/06/2015 FINDINGS: Mildly distended tubular linear hypo echogenicities are noted in the right breast at 10 to 12 o'clock position, may represent dilated ducts versus cyst measuring up to 0.6 centimeters. Right breast axillary lymph nodes measuring 1.3 centimeters noted. IMPRESSION: Probably benign finding. Please see diagnostic mammogram report of the same date for further recommendations. Dictated by: Peggy Grant 03/13/2021 16:58 Peggy Grant in [place] 03/13/2021 16:58
== END ==
PROVIDERS: PCP Family Medicine; Visit Provider Nurse Practitioner Obstetrics & Gynecology
DX: R92.8 Other abnormal and inconclusive findings on diagnostic imaging of breast (principal)
CPT/HCPCS: 76641; 77061; 77065; G0279

== ENCOUNTER → 2021-09-22 14:36 | Outpatient (CLI) | payer BC, SELFPAY ==
--- NOTE | 2021-09-22 14:37 | MM_ITS ---
PROCEDURE INFORMATION: Exam: US Right Breast, Complete MG Right Diagnostic Breast Tomosynthesis Exam date and time: 09/22/2021 2:37 PM Age: 51 years old Clinical indication: Six-month follow-up for probably benign dilated ducts in the 12 o'clock position TECHNIQUE: Imaging protocol: Complete ultrasound of all four quadrants of the Right breast and the retroareolar regions, including ultrasound of the axilla when performed. Right Diagnostic tomosynthesis and 2D mammography including computer-aided detection (CAD) when performed. Unilateral or bilateral exam. COMPARISON: 1. MG MM DIG MAMM DX UNILAT RT CAD 03/13/2021 1:31 PM 2. MG MM DIG SCREENING MAMM BI W/CAD 02/18/2021 10:27 AM 3. MG MM DIG SCREENING MAMM BI W/CAD 02/12/2020 10:02 AM FINDINGS: MAMMOGRAPHY: Breast density: The breasts are heterogeneously dense, which may obscure small masses. Mass: No suspicious masses. The previously noted, questionable screening detected mass in the posterior central right breast is much less conspicuous today and may have represented summation artifact on prior exam. Architectural distortion: No suspicious distortion. Calcifications: No suspicious calcifications. Asymmetric density: None. Skin thickening: None. Axillary adenopathy: None. ULTRASOUND: No suspicious solid mass identified. Probably benign cluster of complicated cysts versus debris-filled dilated ducts in the 12 o'clock position 3 cm from the nipple measuring 0.5 x 0.7 x 0.4 cm. Probably benign complicated cyst versus hypoechoic solid mass in the 3 o'clock position 1 cm from the nipple measuring 0.5 x 0.3 x 0.5 cm, slightly decreased in size compared to prior exam, previously measuring approximately 0.7 cm. Probably benign complicated cyst versus dilated duct in the 6 o'clock position 4 cm from the nipple measuring 0.5 x 0.6 x 0.3 cm. Fatty benign-appearing right axillary lymph are seen, largest measuring 2.7 cm in length. IMPRESSION: No new suspicious mammographic or sonographic findings today. Recommend additional 6 month follow-up diagnostic mammogram and ultrasound of the right breast to confirm stability of probably benign cystic lesions versus debris-filled dilated ducts in the 12 o'clock , 3 o'clock and 6 o'clock positions. The patient will also be due for her annual bilateral mammogram on 02/18/2022. ASSESSMENT: BI-RADS Category 3: Probably Benign
== END ==
LOC: RAD 14:37
PROVIDERS: PCP Family Medicine; Visit Provider Nurse Practitioner Obstetrics & Gynecology
DX: R92.8 Other abnormal and inconclusive findings on diagnostic imaging of breast (principal)
CPT/HCPCS: 76641; 77061; 77065; G0279

== ENCOUNTER → 2021-12-30 13:11 | Outpatient (CLI) | payer BC, SELFPAY ==
--- NOTE | 2021-12-30 13:16 | XR_ITS ---
FINAL REPORT CLINICAL HISTORY: LEFT FOOT PAIN FINDINGS: LEFT FOOT: Three views of the left foot were obtained. There is a subacute to chronic fracture of the 4th metatarsal which may represent a healing stress fracture with callus formation. The joint spaces are intact. There is no soft tissue abnormality. IMPRESSION: Subacute to chronic fracture of the 4th metatarsal. Reviewed, Interpreted and Dictated by Russell Johnson III, MD Transcribed by Roland Ann Authenticated by Russell Johnson III, MD on 12/30/2021 02:23:35 PM [facility]
== END ==
LOC: RAD 13:12
PROVIDERS: PCP Nurse Practitioner Family; Visit Provider Nurse Practitioner Family
DX: M79.672 Pain in left foot (principal)
CPT/HCPCS: 73630

== ENCOUNTER → 2022-01-02 12:28 | Outpatient (CLI) | payer OTHER, SELFPAY ==
--- NOTE | 2022-01-02 13:08 | MR_ITS ---
FINAL REPORT CLINICAL HISTORY: pt states 3 years ago she injured arm at work. no unable to use arm. lrom. pain with lifting and raising. 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 FINDINGS: Multiplanar MR imaging of the left shoulder was performed without contrast. There is a focal full-thickness tear at the anterior footprint of the supraspinatus tendon measuring 10 mm in AP dimensions. There is mild AC joint degenerative change. There is a small amount of fluid in the joint and the subacromial/subdeltoid bursa. The glenoid labrum is intact. The long head of the biceps tendon is intact. There are several cysts in the humeral head. There is no evidence of fracture or dislocation. The musculature is intact. There is no evidence of soft tissue mass. IMPRESSION: Focal full-thickness tear of the supraspinatus tendon. Mild AC joint arthrosis. Several cysts in the humeral head. Reviewed, Interpreted and Dictated by Russell Johnson III, MD Transcribed by Roland Ann Authenticated by Russell Johnson III, MD on 01/02/2022 03:13:24 PM [facility]
== END ==
PROVIDERS: PCP Nurse Practitioner Family; Visit Provider Nurse Practitioner Family
DX: M25.512 Pain in left shoulder (principal)
CPT/HCPCS: 73221

== ENCOUNTER 2022-01-02 12:39 | Outpatient (RCR) | payer BC, SELFPAY | END 2022-01-02 13:40 | disposition home or self-care (01) | LOC: PT 12:39 | PROVIDERS: Visit Provider Orthopaedic Surgery | DX: S92.345A Nondisplaced fracture of fourth metatarsal bone, left foot, initial encounter for closed fracture (principal) | CPT/HCPCS: 97760 ==

== ENCOUNTER → 2022-01-09 09:11 | Outpatient (CLI) | payer BC, SELFPAY ==
--- NOTE | 2022-01-09 09:11 | XR_ITS ---
FINAL REPORT TECHNIQUE: Bone densitometry calculations of the lumbar spine and left hip were obtained. CLINICAL HISTORY: screening FINDINGS: Using L1-4, the bone mineral density of the spine is 1.038 g/cm2, corresponding to T-score of -0.1. Using the left hip, the bone mineral density of the femoral neck is 0.768 g/cm2, corresponding to a T-score of -0.7. NOTE: T-score: Standard deviation compared with peak bone mass of young adult mean. *Following the recommendations of the International Society of Bone densitometry, classification of hip BMD is based on the lower of two T-scores; total hip or femoral neck. IMPRESSION: Normal bone mineral density of the lumbar spine and hip. Reviewed, Interpreted and Dictated by Russell Johnson III, MD Transcribed by Roland Ann Authenticated by Russell Johnson III, MD on 01/09/2022 10:54:28 AM [facility][1]
== END ==
PROVIDERS: PCP Nurse Practitioner Family; Visit Provider Orthopaedic Surgery
DX: Z13.820 Encounter for screening for osteoporosis (principal)
CPT/HCPCS: 77080

== ENCOUNTER → 2022-01-30 09:53 | Outpatient (CLI) | payer BC, SELFPAY ==
--- NOTE | 2022-01-30 09:57 | XR_ITS ---
FINAL REPORT CLINICAL HISTORY: foot fracture, Pt states that pain started about 2 months ago, no known trauma. COMPARISON: December 30, 2021 FINDINGS: LEFT FOOT There is a late subacute to chronic fracture of the 4th metatarsal. There is increased bone formation at this site consistent with further interval healing. There is no new bony abnormality identified. The joint spaces are intact. There is no soft tissue abnormality. IMPRESSION: Interval healing of late subacute to chronic fracture of the 4th metatarsal. Reviewed, Interpreted and Dictated by Russell Johnson III, MD Transcribed by Anitha Blackmon Authenticated and [facility]
== END ==
LOC: RAD 09:54
PROVIDERS: PCP Nurse Practitioner Family; Visit Provider Orthopaedic Surgery
DX: S92.902A Unspecified fracture of left foot, initial encounter for closed fracture (principal)
CPT/HCPCS: 73630

== ENCOUNTER → 2022-04-10 09:51 | Outpatient (CLI) | payer BC, SELFPAY ==
--- NOTE | 2022-04-10 09:54 | XR_ITS ---
FINAL REPORT CLINICAL HISTORY: foot fracture COMPARISON: 01/30/2022 FINDINGS: 3 views of the left foot were obtained. There has been further interval healing of a 4th metatarsal fracture with increased bone formation. The joint spaces are intact. The soft tissues are unremarkable. IMPRESSION: Further interval healing of a 4th metatarsal fracture. Reviewed, Interpreted and Dictated by Russell Johnson III, MD Transcribed by Roland Ann Authenticated and [facility]
== END ==
LOC: RAD 09:52
PROVIDERS: PCP Nurse Practitioner Family; Visit Provider Orthopaedic Surgery
DX: S92.902A Unspecified fracture of left foot, initial encounter for closed fracture (principal)
CPT/HCPCS: 73630

== ENCOUNTER → 2022-07-07 09:17 | Outpatient (CLI) | payer BC, SELFPAY ==
--- NOTE | 2022-07-07 09:19 | XR_ITS ---
FINAL REPORT CLINICAL HISTORY: lt foot pain broke 6 months ago FINDINGS: 3 views of the left foot were obtained. There is periosteal reaction in the distal diaphysis of the 4th metatarsal consistent with old healed fracture. There is no acute fracture or dislocation. The joint spaces are intact. The soft tissues are unremarkable. IMPRESSION: No acute process. Reviewed, Interpreted and Dictated by Codey Weir MD Transcribed by Roland Ann Authenticated and [facility]
== END ==
LOC: RAD 09:17
PROVIDERS: PCP Nurse Practitioner Family; Visit Provider Physician Assistant Surgical
DX: M79.672 Pain in left foot (principal)
CPT/HCPCS: 73630

== ENCOUNTER → 2022-07-23 08:48 | Outpatient (CLI) | payer BC, SELFPAY ==
--- NOTE | 2022-07-23 08:49 | MM_ITS ---
PROCEDURE INFORMATION: Exam: MG Bilateral Screening 3D Mammography Exam date and time: 07/23/2022 8:44 AM Age: 52 years old Clinical indication: Screening examination. No family history of breast cancer. Referred for six-month follow-up probably benign cystic findings on the right at 12, 3, and 6 o'clock, on 09/22/2021. TECHNIQUE: Imaging protocol: Bilateral Screening tomosynthesis and 2D mammography including computer-aided detection (CAD) when performed. COMPARISON: 1. MG MM DIG MAMM DX UNILAT RT CAD 09/22/2021 2:41 PM 2. MG MM DIG MAMM DX UNILAT RT CAD 03/13/2021 1:31 PM 3. MG MM DIG SCREENING MAMM BI W/CAD 02/18/2021 10:27 AM 4. MG MM DIG SCREENING MAMM BI W/CAD 02/12/2020 10:02 AM FINDINGS: MAMMOGRAPHY: Breast composition: The breasts are heterogeneously dense, which may obscure small masses. Mass: Possible 0.7 cm partly visualized, partly circumscribed mass in the right , 1-5:00, mid third, 4-5 cm from the nipple, CC 52 and MLO frame 47. Architectural distortion: None. Calcifications: No suspicious calcifications. Asymmetric density: None. Skin thickening: None. Axillary adenopathy: None. IMPRESSION: Patient to be recalled for right diagnostic spot compression in CC and MLO projections as well as right sonography, including the recommended sonography on 09/22/2021 (unless it is ordered been performed in the interval). ASSESSMENT: BI-RADS Category 0: Incomplete- Need Additional Imaging Evaluation and/or Prior Mammograms for Comparison
== END ==
PROVIDERS: PCP Nurse Practitioner Family; Visit Provider Nurse Practitioner Obstetrics & Gynecology
DX: Z12.31 Encounter for screening mammogram for malignant neoplasm of breast (principal)
CPT/HCPCS: 77063; 77067

== ENCOUNTER → 2022-08-13 13:44 | Outpatient (CLI) | payer BC, SELFPAY ==
--- NOTE | 2022-08-13 13:44 | MM_ITS ---
PROCEDURE INFORMATION: Exam: US Right Breast, Complete MG Right Diagnostic Breast Tomosynthesis Exam date and time: 08/13/2022 1:52 PM Age: 52 years old Clinical indication: Patient recalled on the basis of a screening mammogram for further evaluation; Right breast; mass TECHNIQUE: Imaging protocol: Complete ultrasound of all four quadrants of the Right breast and the retroareolar regions, including ultrasound of the axilla when performed. Right Diagnostic tomosynthesis and 2D mammography including computer-aided detection (CAD) when performed. Unilateral or bilateral exam. COMPARISON: 1. MG MM DIG SCREENING MAMM BI W/CAD 07/23/2022 8:44 AM 2. MG MM DIG MAMM DX UNILAT RT CAD 09/22/2021 2:41 PM FINDINGS: MAMMOGRAPHY: Digital diagnostic spot compression views of the right breast and 90 degree lateral view of the right breast demonstrate normal overlapping fibroglandular structures without persistent mass or asymmetry identified. ULTRASOUND: Sonographic images of the right breast including the retroareolar region, all 4 quadrants and the axilla do not demonstrate any solid masses. Minimal subcentimeter cystic change is present medially. No architectural distortion or acoustical shadowing. No skin thickening or axillary adenopathy. IMPRESSION: No mammographic or sonographic evidence of malignancy. Annual bilateral mammographic screening is recommended unless otherwise clinically indicated. ASSESSMENT: BI-RADS Category 2: Benign
== END ==
LOC: RAD 13:44
PROVIDERS: PCP Nurse Practitioner Family; Visit Provider Nurse Practitioner Obstetrics & Gynecology
DX: R92.8 Other abnormal and inconclusive findings on diagnostic imaging of breast (principal)
CPT/HCPCS: 76641; 77061; 77065; G0279

== ENCOUNTER → 2022-12-01 10:18 | Outpatient (POV) | payer BC, SELFPAY | PROVIDERS: Visit Provider Dermatology | DX: Z00.00 Encounter for general adult medical examination without abnormal findings (principal) ==

== ENCOUNTER 2023-03-21 10:30 | Emergency (ER) | payer BC, SELFPAY ==
[2023-03-21] VITALS (8 sets, daily range): BP systolic 124–149; BP diastolic 61–99; PULSE 59–79; RESP 17–18; TEMP 36.6–36.8; O2SAT 94–100; BMI 26.6
[2023-03-21 11:10] LABS: Basophils % 0.2 % (0.1-2.0); Eosinophils # 0.1 K/mm3 (0.0-0.4); Hematocrit 39.2 % (37.0-47.0); Hemoglobin 12.4 g/dL (12.2-16.2); Lymphocytes # 0.9 K/mm3 (0.7-4.5); Mean Corpuscular HGB Conc 31.6 g/dL (31.8-35.4); Mean Corpuscular Hemoglobin 26.9 pg (27.0-31.2); Mean Corpuscular Volume 85.3 fl (81-99); Mean Platelet Volume 8.4 fl (7.4-10.4); Monocytes # 0.3 K/mm3 (0.1-1.0); Neutrophils % 86.7 % (37.0-80.0); Platelet Count 288 K/mm3 (142-424); Red Cell Distribution Width 13.5 % (11.5-17.5); White Blood Count 10.3 K/mm3 (4.8-10.8)
[2023-03-21 11:12] LABS: Chloride 103 mmol/L (98-107); Potassium 4.7 mmoL/L (3.5-5.1); Sodium 138 mmol/L (136-145)
[2023-03-21 11:13] LABS: MANUAL DIFFERENTIAL MANUAL DIFFERENTIAL (MANUAL DIFF)
[2023-03-21 11:15] LABS: Alanine Aminotransferase 30 U/L (12-78); Albumin Level 4.4 g/dl (3.5-5.0); Albumin/Globulin Ratio 1.6 (1.1-1.8); Alkaline Phosphatase 68 U/L (38-126); Anion Gap 13.7 mEq/L (5-15); Aspartate Amino Transferase 31 U/L (14-36); Bilirubin,Total 0.4 mg/dl (0.2-1.3); Blood Urea Nitrogen 18 mg/dl (7-17); Carbon Dioxide 26 mmol/L (22.0-30.0); Creatinine Clearance Estimated 93 mL/min (50-200); Estimated Glomerular Filt Rate 75 ml/min (>60); GFR (African American) 91 ML/MIN (>60); Globulin 2.8 g/dL (1.3-3.2); Total Protein,Serum 7.2 g/dl (6.3-8.2)
[2023-03-21 11:16] LABS: Glucose 126 mg/dl (74-100)
--- NOTE | 2023-03-21 11:22 | CT_ITS ---
PROCEDURE INFORMATION: Exam: CT Abdomen And Pelvis Without Contrast Exam date and time: 03/21/2023 12:05 PM Age: 52 years old Clinical indication: Abdominal pain; Flank; Left lower quadrant (llq); Additional info: Llq abdominal pain, stone protocol TECHNIQUE: Imaging protocol: Computed tomography of the abdomen and pelvis without contrast. Radiation optimization: All CT scans at this facility use at least one of these dose optimization techniques: automated exposure control; mA and/or kV adjustment per patient size (includes targeted exams where dose is matched to clinical indication); or iterative reconstruction. REPORTING DATA: Count of CT and Cardiac NM exams in prior 12 months: This patient has received 0 known CTs and 0 known cardiac nuclear medicine studies in the 12 months prior to the current study. COMPARISON: CR XR CHEST 2V 12/06/2019 9:53 PM FINDINGS: Liver: Normal. No mass. Gallbladder and bile ducts: Normal. No calcified stones. No ductal dilation. Pancreas: Normal. No ductal dilation. Spleen: Multiple calcified splenic granulomata. Adrenal glands: Normal. No mass. Kidneys and ureters: There is a 2.6 mm, obstructing, left ureterovesical junction stone, with associated moderate left hydroureteral nephrosis. There is inflammatory fat stranding surrounding the left kidney. Findings are consistent with pyelonephritis. There is an additional, nonobstructing 2 mm left inferior pole renal stone. No right renal stones or right hydroureteronephrosis. Stomach and bowel: Unremarkable. No obstruction. No mucosal thickening. Appendix: The appendix is visualized and appears normal. Intraperitoneal space: Unremarkable. No free air. No significant fluid collection. Vasculature: Unremarkable. No abdominal aortic aneurysm. Lymph nodes: Unremarkable. No enlarged lymph nodes. Urinary bladder: Unremarkable as visualized. Reproductive: Unremarkable as visualized. Bones/joints: Unremarkable. No acute fracture. Soft tissues: Unremarkable. IMPRESSION: There is a 2.6 mm, obstructing, left ureterovesical junction stone, with associated moderate left hydroureteral nephrosis. There is inflammatory fat stranding surrounding the left kidney. Findings are consistent with pyelonephritis. There is an additional, nonobstructing 2 mm left inferior pole renal stone.
--- NOTE | 2023-03-21 11:24 | HMH.EDGENADL ---
Discharge Plan Disposition Patient Disposition: Home, Self-Care Condition: Fair Prescriptions Prescriptions: New ondansetron 4 mg tablet,disintegrating 4 mg PO Q8H PRN (Reason: nausea and vomiting) 4 Days Qty: 16 0RF oxycodone 5 mg tablet 5 mg PO Q6H PRN (Reason: pain) Qty: 16 0RF Rx Instructions: Please take for severe pain refractory to Tylenol and ibuprofen No Action famotidine 40 mg tablet 40 mg PO meloxicam 15 mg tablet 15 mg PO DAILY progesterone micronized [Prometrium] 100 mg capsule 100 mg PO DAILY 30 Days Qty: 30 11RF medroxyprogesterone [Provera] 2.5 mg tablet 2.5 mg PO DAILY 90 Days Qty: 90 3RF estradiol 1 mg tablet See Rx Instructions .ROUTE .COMPLEX Qty: 90 3RF Dose Instruction: TAKE 1 TABLET DAILY Rx Instructions: TAKE 1 TABLET DAILY bisoprolol fumarate 5 MG tablet 0.5 tab PO DAILY cetirizine 10 MG capsule 10 mg PO DAILY Referrals Follow up/Referrals: Ibeth Banks APRN [Primary Care Provider] - See instructions Activity Restrictions/Add. Instructions Additional Instructions/Restrictions: At this time it was felt you are safe to be discharged home. If new or worsening symptoms please do not hesitate to return to the emergency department. If you have fever please return to the emergency department. Please take your medications as prescribed and follow-up early to midweek with your family doctor for continued evaluation. Clinical Impressions Clinical Impression: Calculus of ureterovesical junction (UVJ) Discharge ED Provider: Shimon [place] [facility] HPI General Chief complaint: PAIN Stated complaint: left side pain Time Seen by Provider: 03/21/23 11:16 Mode of Arrival: Wheelchair Source of Information: Patient Limitations: No Limitations Description of Symptoms (Recalled from ER Triage Doc. by RN): Pt reports L sided abd pain that began suddenly while at work, reports has constant pressure of needing to urinate since pain began, pt reports only voiding small amounts at a time. Pt states no blood noted in urine. History of Present Illness HPI narrative: Patient is a 52-year-old female with no pertinent past medical history presents emergency department for left lower quadrant abdominal pain. Onset was acute, 630 this morning, severe. Nonmodifiable. There is associated nausea, no vomiting. Last bowel movement this morning. Patient denies dysuria. No history of kidney stones before. No other acute complaints at this time Related Data Home Medications Medication Instructions Recorded Confirmed bisoprolol fumarate 5 mg tablet 0.5 tab PO DAILY High blood 04/04/20 10/01/22 pressure cetirizine 10 mg capsule 10 mg PO DAILY allergies 04/08/20 10/01/22 famotidine 40 mg tablet 40 mg PO 01/02/21 10/01/22 meloxicam 15 mg tablet 15 mg PO DAILY 04/10/22 10/01/22 Previous Rx's Medication Instructions Recorded medroxyprogesterone 2.5 mg tablet 2.5 mg PO DAILY 90 days #90 tabs 10/06/21 (Provera) estradiol 1 mg tablet See Rx Instructions .Route 07/22/22 .COMPLEX #90 tabs progesterone micronized 100 mg 100 mg PO DAILY 30 days #30 caps 10/01/22 capsule (Prometrium) ondansetron 4 mg disintegrating 4 mg PO Q8H PRN nausea and 03/21/23 tablet vomiting 4 days #16 tabs oxycodone 5 mg tablet 5 mg PO Q6H PRN pain #16 tabs 03/21/23 Allergies Allergy/AdvReac Type Severity Reaction Status Date / Time No Known Allergies Allergy Verified 10/01/22 10:31 [facility] Disclaimer: The information contained in this section may have been updated after the patient was seen, as this information can be updated by other users. Social History Smoking Status: Unknown if ever smoked alcohol intake: never substance use type: denies use current occupational status: employed Travel in the last 8 weeks: None household members: spouse housing: house curr
[2023-03-21 11:34] LABS: HCG Qualitative, Serum Negative (Negative)
[2023-03-21 11:50] LABS: Lymphocytes % 11 % (10-50); Monocytes % 3 % (2-9); Neutrophils % 86 % (42-76); Platelet Estimate Normal; Total Cells Counted 100
[2023-03-21 11:51] LABS: Hypochromasia 1+
--- NOTE | 2023-03-21 12:07 | PC.NURSE ---
pt back from rad
--- NOTE | 2023-03-21 12:08 | PC.NURSE ---
PT RETURNED FROM CT
[2023-03-21 12:39] LABS: Microscopic, Urine URINE MICROSCOPIC (MICROSCOPIC)
[2023-03-21 12:41] LABS: Appearance,Urine CLEAR (Clear); Bilirubin,Urine Negative (Negative); Blood, Urine Negative (Negative); Color,Urine YELLOW (Yellow); Glucose,Urine (UA) Negative (Negative); Ketones,Urine 2+ (Negative); Leukocyte Esterase,Urine Negative (Negative); Nitrate,Urine Negative (Negative); PH,Urine 8.5 (5.0-8.5); Protein,Urine Negative (Negative); Specific Gravity, Urine 1.015 (1.005-1.030); Urobilinogen,Urine 0.2 EU/dl (0.2)
[2023-03-21 12:53] LABS: Bacteria,Urine Trace /lpf; Squamous Epithelial Cell,Urine Occasional #/hpf (0-5)
--- NOTE | 2023-03-21 14:09 | PC.NURSE ---
Addendum entered by Barb Al RN 03/21/23 14:10: waiting manager transmission back from hospitalist at [facility], bed placement staff did report they have no beds at this time they are placing pts on a wait list Original Note: contacting [facility] r/t possible transfer
--- NOTE | 2023-03-21 14:18 | PC.NURSE ---
contacting [facility] r/t transfer
--- NOTE | 2023-03-21 14:27 | PC.NURSE ---
ER MD [place] speaking with with [facility] at this time
--- NOTE | 2023-03-21 14:33 | PC.NURSE ---
TRUDY RESENDEZ at discussing POC with pt.
--- NOTE | 2023-03-21 14:36 | PC.NURSE ---
notified [facility] pt has decided to be discharged home after discussing with ER MD [place]
== END 2023-03-21 15:50 | disposition home or self-care (01) ==
PROVIDERS: Emergency Provider Emergency Medicine; PCP Nurse Practitioner Family
DX: N13.2 Hydronephrosis with renal and ureteral calculous obstruction (principal)
CPT/HCPCS: 74176; 80053; 81001; 84703; 85007; 85025; 96361; 96374; 96375; 96376; 99285; J0696; J2405

== ENCOUNTER → 2023-03-23 07:55 | Outpatient (CLI) | payer BC, SELFPAY ==
--- NOTE | 2023-03-23 08:07 | US_ITS ---
FINAL REPORT CLINICAL HISTORY: THYROID NODULE COMPARISON: 12/25/2020 FINDINGS: Thyroid ultrasound: The right lobe of the thyroid measures 3.7 x 1.4 x 1.1 cm in size. The echotexture is normal and no evidence of nodules is seen. The left lobe of the thyroid measures 3.4 x 1.2 x 1.4 cm in size. The echotexture is normal. There is a single cystic nodule present measuring 3 x 2 x 1 mm in size, that is essentially unchanged in size or appearance since the prior ultrasound of 2020. The isthmus measures 3 mm in thickness and is normal in appearance. IMPRESSION: Single subcentimeter nodule left lobe of the thyroid, cystic, a TI-RADS 1 nodule. No follow-up is needed at this time. Otherwise unremarkable thyroid ultrasound. Reviewed, Interpreted and Dictated by Russell Jhonson III, MD Transcribed by Ruby Tejada Authenticated and [facility]
--- NOTE | 2023-03-23 08:08 | XR_ITS ---
FINAL REPORT TECHNIQUE: Bone densitometry calculations of the lumbar spine and left hip were obtained. CLINICAL HISTORY: . [facility] COMPARISON: 01/09/2022 FINDINGS: Using L1-4, the bone mineral density of the spine is 1.087 g/cm2, corresponding to T-score of 0.4. Using the left hip, the bone mineral density of the femoral neck is 0.885 g/cm2, corresponding to a T-score of -0.5. Using the right hip, the bone mineral density of the femoral neck is 0.864 g/cm2, corresponding to a T-score of -0.6. NOTE: T-score: Standard deviation compared with peak bone mass of young adult mean. *Following the recommendations of the International Society of Bone densitometry, classification of hip BMD is based on the lower of two T-scores; total hip or femoral neck. IMPRESSION: Normal bone mineral density of the lumbar spine and hip. FRAX was not reported because all of the T-scores are at or above -1.0 Reviewed, Interpreted and Dictated by Russell Johnson III, MD Transcribed by Yani Frey Authenticated and [facility]
--- NOTE | 2023-03-23 08:16 | XR_ITS ---
FINAL REPORT CLINICAL HISTORY: LT HIP PAIN FINDINGS: Left hip Three views were obtained. There is no acute fracture or dislocation. There are mild degenerative changes. There is soft tissue calcification at the lateral aspect of the left hip. IMPRESSION: No acute process. Reviewed, Interpreted and Dictated by Russell Johnson III, MD Transcribed by Yani Frey Authenticated and [facility]
--- NOTE | 2023-03-23 08:16 | XR_ITS ---
FINAL REPORT CLINICAL HISTORY: RT HIP PAIN FINDINGS: Right hip Three views were obtained. There is no acute fracture or dislocation. There are mild degenerative changes. No soft tissue abnormality is identified. IMPRESSION: No acute process. Reviewed, Interpreted and Dictated by Russell Johnson III, MD Transcribed by Yani Frey Authenticated and [facility]
== END ==
LOC: RAD 07:56
PROVIDERS: PCP Nurse Practitioner Family; Visit Provider Nurse Practitioner Family
DX: E04.1 Nontoxic single thyroid nodule (principal)
CPT/HCPCS: 73502; 76536; 77080

== ENCOUNTER 2023-09-30 10:18 | Outpatient (CLI) | payer BC, SELFPAY ==
--- NOTE | 2023-09-30 10:23 | MM_ITS ---
PROCEDURE INFORMATION: Exam: MG Bilateral Screening 3D Mammography Exam date and time: 09/30/2023 10:10 AM Age: 53 years old Clinical indication: Screening mammogram TECHNIQUE: Imaging protocol: Bilateral Screening tomosynthesis and 2D mammography including computer-aided detection (CAD) when performed. COMPARISON: 1. MG MM DIG MAMM DX UNILAT RT CAD 08/13/2022 1:52 PM 2. MG MM DIG SCREENING MAMM BI W/CAD 07/23/2022 8:44 AM 3. MG MM DIG MAMM DX UNILAT RT CAD 09/22/2021 2:41 PM 4. MG MM DIG MAMM DX UNILAT RT CAD 03/13/2021 1:31 PM FINDINGS: MAMMOGRAPHY: Breast composition: The breast is heterogeneously dense, which may obscure small masses. Mass: None. Architectural distortion: No new or suspicious architectural distortion. Calcifications: No new or suspicious calcifications are present Asymmetric density: No new or suspicious asymmetric density is present Skin thickening: None. Axillary adenopathy: None. IMPRESSION: No mammographic evidence of malignancy. Recommend annual screening mammography unless otherwise clinically indicated. ASSESSMENT: BI-RADS category 1: Negative
== END 2023-09-30 23:59 ==
LOC: RAD 10:19
PROVIDERS: PCP Nurse Practitioner; Visit Provider Nurse Practitioner Obstetrics & Gynecology
DX: Z12.31 Encounter for screening mammogram for malignant neoplasm of breast (principal)
CPT/HCPCS: 77063; 77067

== ENCOUNTER 2024-06-26 13:58 | Outpatient (CLI) | payer BC, SELFPAY ==
--- NOTE | 2024-06-26 14:02 | XR_ITS ---
PROCEDURE INFORMATION: Exam: XR Abdomen Exam date and time: 06/26/2024 2:16 PM Age: 54 years old Clinical indication: Other: UTI TECHNIQUE: Imaging protocol: Radiologic exam of the abdomen. Views: Frontal supine view of the abdomen. 1 View. COMPARISON: CT ABDOMEN PELVIS WO CON 03/21/2023 12:05 PM FINDINGS: Gastrointestinal tract: Non-obstructive bowel gas pattern. Bones/joints: No evidence of acute osseous abnormality. IMPRESSION: No acute findings.
== END 2024-06-26 23:59 | disposition home or self-care (01) ==
LOC: RAD 13:59
PROVIDERS: PCP Nurse Practitioner; Visit Provider Nurse Practitioner
DX: N39.0 Urinary tract infection, site not specified (principal)
CPT/HCPCS: 74018

== ENCOUNTER 2024-07-05 07:09 | Outpatient (CLI) | payer BC, SELFPAY ==
--- NOTE | 2024-07-05 07:11 | US_ITS ---
FINAL REPORT CLINICAL HISTORY: ELEVATED LIVER ENZYMES COMPARISON: None FINDINGS: Sonographic images of the right upper quadrant were obtained. The pancreas is obscured. The liver is heterogeneous with fatty infiltration. There are 2 small hypoechoic areas in the liver measuring less than 1 cm in size favored to represent small hemangiomas. Sludge is noted in the gallbladder. There is no evidence of biliary ductal dilatation.The common duct measures 3 mm. There is a cyst in the right kidney measuring up to 1.8 cm. IMPRESSION: Fatty heterogeneous liver with small hemangiomas. Sludge in the gallbladder. Right renal cyst. Reviewed, Interpreted and Dictated by Codey Weir MD Transcribed by Anitha Blackmon Authenticated and [facility]
== END 2024-07-05 23:59 | disposition home or self-care (01) ==
PROVIDERS: PCP Nurse Practitioner; Visit Provider Nurse Practitioner
DX: R74.8 Abnormal levels of other serum enzymes (principal)
CPT/HCPCS: 76705

== ENCOUNTER 2024-08-03 08:55 | Outpatient (CLI) | payer BC, SELFPAY ==
--- NOTE | 2024-08-03 | NM_ITS ---
FINAL REPORT CLINICAL HISTORY: ABNORMAL US OF ABD COMPARISON: None FINDINGS: Sequential anterior projection images of the abdomen were obtained after the intravenous injection of 8.5 to mCi technetium 99m Choletec. There is normal uptake of radiotracer by the liver. The bile ducts are visualized by 5 minutes. Gallbladder activity is seen by 10 minutes. Bowel activity is noted by 45 minutes. After 1 hour, 1.4 ?g of CCK was injected intravenously for calculation of gallbladder ejection fraction. The gallbladder ejection fraction is 88%, which is within normal limits. IMPRESSION: No evidence of cystic duct or bile duct obstruction. Normal gallbladder ejection fraction of 88%. Reviewed, Interpreted and Dictated by Russell Johnson III, MD Transcribed by Ruby Tejada Authenticated and [facility]
[2024-08-03] MEDS: SINCALIDE 1.4 MCG in 0.9 % SODIUM CHLORIDE 50 ML 100 MCG IV (11:00)
[2024-08-03] MEDS: ISOTOPE CHOLETECH;1 DOSE (UP TO 15 MCI) IV (11:00)
[2024-08-03] MEDS: SODIUM CHLORIDE 0.9% 10ML SYR (RAD ONLY) 10 ML IV (11:00)
== END 2024-08-03 23:59 | disposition home or self-care (01) ==
LOC: RAD 08:56
PROVIDERS: PCP Nurse Practitioner; Visit Provider Nurse Practitioner
DX: R93.5 Abnormal findings on diagnostic imaging of other abdominal regions, including retroperitoneum (principal)
CPT/HCPCS: 78227; A9537; J2805

== ENCOUNTER 2024-08-14 12:41 | Outpatient (CLI) | payer BC, SELFPAY ==
--- NOTE | 2024-08-14 12:44 | CT_ITS ---
FINAL REPORT TECHNIQUE: Axial CT with contrast with 3-D MIP reconstruction This study was performed with techniques to keep radiation doses as low as reasonably achievable, (ALARA). Individualized dose reduction techniques using automated exposure control or adjustment of mA and/or kV according to the patient's size were employed. CLINICAL HISTORY: RIGHT FLANK PAIN, MID RIGHT SIDED BACK PAIN COMPARISON: None FINDINGS: Pulmonary vessels enhance in normal fashion without evidence of embolism. Thoracic aorta shows no dissection or aneurysm. No pulmonary mass or infiltrate is present. There is no significant pleural effusion. There is no significant pericardial effusion. No mediastinal or hilar adenopathy is present. No evidence of rib fracture or rib lesion is seen. IMPRESSION: No evidence of thoracic dissection or aneurysm. No evidence of rib fracture or rib lesion is seen. Reviewed, Interpreted and Dictated by Alexa Duncan MD Transcribed by Ruby Tejada Authenticated and [facility]
[2024-08-14] MEDS: IOPAMIDOL-370 (76%);100ML BOTTLE 75 ML IV (13:09)
[2024-08-14] MEDS: SODIUM CHLORIDE 0.9% 10ML SYR (RAD ONLY) 10 ML IV (13:09)
== END 2024-08-14 23:59 | disposition home or self-care (01) ==
LOC: RAD 12:42
PROVIDERS: PCP Nurse Practitioner; Visit Provider Nurse Practitioner
DX: R10.9 Unspecified abdominal pain (principal)
CPT/HCPCS: 71260; Q9967

== ENCOUNTER 2025-01-03 15:42 | Outpatient (CLI) | payer BC, SELFPAY ==
--- NOTE | 2025-01-03 15:47 | XR_ITS ---
FINAL REPORT CLINICAL HISTORY: PAIN IN RIGHT FOOT FINDINGS: RIGHT FOOT 3 views of the right foot were obtained. There is no acute fracture or dislocation. Visualized joint spaces are normally aligned. There is soft tissue edema overlying the dorsum of the foot measuring 1.7 cm. IMPRESSION: No acute bony abnormality. Reviewed, Interpreted and Dictated by Codey Weir MD Transcribed by Florecita Calvin Authenticated and [facility]
== END 2025-01-03 23:59 | disposition home or self-care (01) ==
LOC: RAD 15:43
PROVIDERS: PCP Nurse Practitioner; Visit Provider Nurse Practitioner
DX: M79.671 Pain in right foot (principal); R60.9 Edema, unspecified
CPT/HCPCS: 73630